=== PATIENT | female | born 1975 | race Caucasian/White ===

== ENCOUNTER 2019-12-26 09:28 | Outpatient (REF) | payer BC, SELFPAY ==
[2019-12-26 11:19] LABS: MANUAL DIFF FLAG NO
[2019-12-26 11:50] LABS: Basophils Percent Auto 0.7 % (0-2); Eosinophils Absolute Auto 0.1 X10*3/uL (0.0-0.4); Eosinophils Percent Auto 2.3 % (0-4); Hematocrit 41.5 % (37-47); Hemoglobin 13.4 g/dl (12.0-16.0); Imm Gran Abs Auto 0.01 X10*3/uL (0.00-0.03); Imm Gran Pct Auto 0.2 % (0.0-0.4); Lymphocytes Absolute Auto 1.6 X10*3/uL (1.2-4.9); Lymphocytes Percent Auto 28.7 % (20-40); Mean Corpuscular HGB Conc 32.3 g/dl (31.0-35.0); Mean Corpuscular Hemoglobin 27.9 pg (27.0-33.0); Mean Corpuscular Volume 86.3 fL (80-98); Monocytes Absolute Auto 0.5 X10*3/uL (0.1-1.2); Monocytes Percent Auto 9.1 % (2-11); Neutrophils Absolute Auto 3.3 X10*3/uL (2.0-8.3); Platelet Count 292 X10*3/uL (160-400); Red Blood Count 4.81 X10*6/uL (4.20-5.50); Red Cell Distribution Width 12.4 % (11.0-16.0); White Blood Count 5.6 X10*3/uL (4.8-10.8)
[2019-12-26 12:24] LABS: Alanine Aminotransferase 57 U/L (0-31); Anion Gap 14 (12-20); Aspartate Amino Transferase 38 U/L (5-31); Blood Urea Nitrogen 10 mg/dL (9-16); Calcium 9.4 mg/dL (8.4-10.2); Carbon Dioxide 29 mmol/L (22-29); Chloride 103 mmol/L (96-108); Cholesterol 275 mg/dL; Estimated Glomerular Filt Rate > 60; Glucose Fasting 92 mg/dL (60-99); HDL Cholesterol 58 mg/dL; LDL Cholesterol Calculated 174 mg/dl; Potassium 4.8 mmol/l (3.3-5.1); Sodium 141 mmol/L (135-145); Triglycerides 216 mg/dL
[2019-12-26 12:32] LABS: TSH reflex Free T4 1.41 mIU/mL (0.32-4.0); Vitamin D 25-OH Total 19.5 ng/mL (>30)
== END 2019-12-26 09:29 | disposition home or self-care (01) ==
LOC: HO.HMGCX 09:28
PROVIDERS: Nurse Practitioner Family; PCP Internal Medicine; Visit Provider Internal Medicine
DX: Z20.828 Contact with and (suspected) exposure to other viral communicable diseases (principal); F41.8 Other specified anxiety disorders; E55.9 Vitamin D deficiency, unspecified; Z00.01 Encounter for general adult medical examination with abnormal findings; I10 Essential (primary) hypertension
CPT/HCPCS: 36415; 80048; 80061; 82306; 84443; 84450; 84460; 85025; U0003

== ENCOUNTER 2020-05-29 08:20 | Outpatient (REF) | payer BC, SELFPAY ==
[2020-05-29 11:16] LABS: MANUAL DIFF FLAG NO
[2020-05-29 11:35] LABS: Basophils Absolute Auto 0.1 X10*3/uL (0.0-0.2); Basophils Percent Auto 1.3 % (0-2); Eosinophils Absolute Auto 0.1 X10*3/uL (0.0-0.4); Eosinophils Percent Auto 2.3 % (0-4); Hemoglobin 12.4 g/dl (12.0-16.0); Imm Gran Abs Auto 0.01 X10*3/uL (0.00-0.03); Imm Gran Pct Auto 0.2 % (0.0-0.4); Lymphocytes Absolute Auto 1.4 X10*3/uL (1.2-4.9); Lymphocytes Percent Auto 29.7 % (20-40); Mean Corpuscular HGB Conc 31.8 g/dl (31.0-35.0); Mean Corpuscular Hemoglobin 27.5 pg (27.0-33.0); Mean Corpuscular Volume 86.5 fL (80-98); Mean Platelet Volume 10.7 fL (9.4-12.3); Monocytes Absolute Auto 0.5 X10*3/uL (0.1-1.2); Monocytes Percent Auto 9.4 % (2-11); Neutrophils Absolute Auto 2.7 X10*3/uL (2.0-8.3); Neutrophils Percent Auto 57.1 % (45-73); Platelet Count 305 X10*3/uL (160-400); Red Blood Count 4.51 X10*6/uL (4.20-5.50); Red Cell Distribution Width 12.9 % (11.0-16.0); White Blood Count 4.8 X10*3/uL (4.8-10.8)
[2020-05-29 11:46] LABS: Alanine Aminotransferase 43 U/L (0-31); Albumin Level 4.4 g/dL (3.5-5.0); Alkaline Phosphatase 66 U/L (39-117); Anion Gap 12 (12-20); Aspartate Amino Transferase 31 U/L (5-31); Bilirubin Total 0.6 mg/dL (0.0-1.0); Blood Urea Nitrogen 12 mg/dL (9-16); Calcium 8.9 mg/dL (8.4-10.2); Carbon Dioxide 26 mmol/L (22-29); Chloride 104 mmol/L (96-108); Cholesterol 228 mg/dL; Estimated Glomerular Filt Rate > 60; Glucose Fasting 97 mg/dL (60-99); HDL Cholesterol 55 mg/dL; LDL Cholesterol Calculated 152 mg/dl; Potassium 4.2 mmol/L (3.3-5.1); Sodium 138 mmol/L (135-145); Total Protein 6.9 g/dL (6.5-8.0); Triglycerides 109 mg/dL
[2020-05-29 11:57] LABS: TSH reflex Free T4 1.72 uIU/mL (0.32-4.0); Vitamin D 25-OH Total 34.1 ng/mL (>30)
[2020-05-29 12:13] LABS: Folate 15.2 ng/mL (> or = 4.0); Vitamin B12 428 pg/mL (200-900)
== END 2020-05-29 08:21 | disposition home or self-care (01) ==
LOC: HO.HMGCLDS 08:20
PROVIDERS: PCP Internal Medicine; Visit Provider Internal Medicine
DX: E55.9 Vitamin D deficiency, unspecified (principal); F41.8 Other specified anxiety disorders; R20.2 Paresthesia of skin; E78.5 Hyperlipidemia, unspecified; F32.81 Premenstrual dysphoric disorder
CPT/HCPCS: 36415; 80053; 80061; 82306; 82607; 82746; 84443; 85025

== ENCOUNTER 2020-12-27 09:42 | Outpatient (REF) | payer BC, SELFPAY ==
[2020-12-27 11:53] LABS: Alanine Aminotransferase 62 U/L (0-31); Anion Gap 9 (12-20); Aspartate Amino Transferase 41 U/L (5-31); Blood Urea Nitrogen 13 mg/dL (9-16); Carbon Dioxide 28 mmol/L (22-29); Chloride 103 mmol/L (96-108); Cholesterol 213 mg/dL; Estimated Glomerular Filt Rate > 60; Glucose Fasting 95 mg/dL (60-99); HDL Cholesterol 55 mg/dL; LDL Cholesterol Calculated 135 mg/dl; Potassium 4.1 mmol/L (3.3-5.1); Sodium 136 mmol/L (135-145); Triglycerides 118 mg/dL
[2020-12-27 12:44] LABS: Folate 12.9 ng/mL (> or = 4.0); Vitamin B12 361 pg/mL (200-900)
== END 2020-12-27 09:43 | disposition home or self-care (01) ==
LOC: HO.HMGCLDS 09:42
PROVIDERS: PCP Internal Medicine; Visit Provider Internal Medicine
DX: R20.2 Paresthesia of skin (principal); E78.5 Hyperlipidemia, unspecified; I10 Essential (primary) hypertension
CPT/HCPCS: 36415; 80048; 80061; 82607; 82746; 84443; 84450; 84460

== ENCOUNTER 2021-02-05 13:56 | Outpatient (REF) | payer BC, SELFPAY ==
--- NOTE | ~2021-02-05 | MM_ITS ---
EXAMINATION: MM SCREENING DIGITAL BREAST TOMOSYNTHESIS, BILATERAL CLINICAL INFORMATION: Screening. Asymptomatic. The lifetime risk of breast cancer based on the Tyrer-Cuzick Model is 14%. COMPARISON: Outside mammography: 02/27/2017, 10/03/2016 ([facility]). TECHNIQUE: Digital breast tomosynthesis is performed in both the craniocaudal and mediolateral oblique views along with computer-aided detection (CAD). Synthesized 2D images are generated from the tomosynthesis. FINDINGS: There are scattered areas of fibroglandular density (ACR BI-RADS breast composition Category b). Parenchymal pattern is similar to prior outside exams. There is no interval mass or architectural abnormality. Again, there are scattered bilateral punctate calcifications in each breast of similar number and distribution. The axilla and skin contours are unremarkable. No significant changes. MM/MM tomosynthesis screening BI IMPRESSION: No mammographic evidence of malignancy. ASSESSMENT: BI-RADS 2: Benign RECOMMENDATION: Routine annual mammography screening. This patient's information was entered into a reminder system with a target due date for their next mammogram.
== END 2021-02-05 13:57 | disposition home or self-care (01) ==
LOC: HO.MAMMO 13:56
PROVIDERS: Visit Provider Internal Medicine
DX: Z12.31 Encounter for screening mammogram for malignant neoplasm of breast (principal)
CPT/HCPCS: 77063; 77067

== ENCOUNTER 2021-12-26 08:52 | Outpatient (REF) | payer BC, SELFPAY ==
[2021-12-26 12:08] LABS: Alanine Aminotransferase 75 U/L (0-31); Anion Gap 13 (12-20); Aspartate Amino Transferase 49 U/L (5-31); Blood Urea Nitrogen 11 mg/dL (9-16); Calcium 9.6 mg/dL (8.4-10.2); Carbon Dioxide 27 mmol/L (22-29); Chloride 103 mmol/L (96-108); Cholesterol 232 mg/dL; Estimated Glomerular Filt Rate > 60; Glucose Fasting 97 mg/dL (60-99); HDL Cholesterol 53 mg/dL; LDL Cholesterol Calculated 158 mg/dl; Potassium 4.3 mmol/L (3.3-5.1); Sodium 139 mmol/L (135-145); TSH reflex Free T4 2.11 uIU/mL (0.32-4.0); Triglycerides 109 mg/dL; Vitamin D 25-OH Total 36.6 ng/mL (>30)
== END 2021-12-26 08:53 | disposition home or self-care (01) ==
LOC: HO.HMGCLDS 08:52
PROVIDERS: PCP Internal Medicine; Visit Provider Internal Medicine
DX: Z00.01 Encounter for general adult medical examination with abnormal findings (principal); E78.5 Hyperlipidemia, unspecified; E66.9 Obesity, unspecified; E55.9 Vitamin D deficiency, unspecified; N95.1 Menopausal and female climacteric states
CPT/HCPCS: 36415; 80048; 80061; 82306; 84443; 84450; 84460

== ENCOUNTER 2022-02-07 15:26 | Outpatient (REF) | payer BC, SELFPAY ==
--- NOTE | ~2022-02-07 | MM_ITS ---
EXAMINATION: MM SCREENING DIGITAL BREAST TOMOSYNTHESIS, BILATERAL CLINICAL INFORMATION: Screening. Asymptomatic. The lifetime risk of breast cancer based on the Tyrer-Cuzick Model is 13.6%. COMPARISON: Mammography: February 05, 2021 and studies dating back to October 03, 2016 TECHNIQUE: Digital breast tomosynthesis is performed in both the craniocaudal and mediolateral oblique views along with computer-aided detection (CAD). Synthesized 2D images are generated from the tomosynthesis. FINDINGS: The breasts are heterogeneously dense, which may obscure small masses (ACR BI-RADS breast composition Category c). There are no significant masses, abnormal calcifications, or other abnormalities. MM/MM tomosynthesis screening BI IMPRESSION: No significant changes from prior exam. ASSESSMENT: BI-RADS 1: Negative RECOMMENDATION: Routine annual mammography screening. This patient's information was entered into a reminder system with a target due date for their next mammogram.
== END 2022-02-07 15:27 | disposition home or self-care (01) ==
LOC: HO.MAMMO 15:26
PROVIDERS: PCP Internal Medicine; Visit Provider Internal Medicine
DX: Z12.31 Encounter for screening mammogram for malignant neoplasm of breast (principal)
CPT/HCPCS: 77063; 77067

== ENCOUNTER 2022-07-29 07:24 | Outpatient (REF) | payer BC, SELFPAY ==
[2022-07-29 11:47] LABS: Alanine Aminotransferase 64 U/L (0-31); Albumin Level 4.3 g/dL (3.5-5.0); Alkaline Phosphatase 81 U/L (39-117); Aspartate Amino Transferase 42 U/L (5-31); Bilirubin Direct 0.1 mg/dL (0.0-0.5); Bilirubin Total 0.6 mg/dL (0.0-1.0); Cholesterol 231 mg/dL; HDL Cholesterol 55 mg/dL; LDL Cholesterol Calculated 156 mg/dl; Total Protein 7.1 g/dL (6.5-8.0); Triglycerides 103 mg/dL
[2022-07-30 07:33] LABS: HBS Num1 0.52 mIU/mL (0-7.99); HBc Num1 0.06 S/CO (0.00-0.79); HBsAGNum1 0.23 S/CO (0.00-0.99); Hepatitis B Core Antibody Nonreactive (Nonreactive); Hepatitis B Surface Antigen Negative (Negative); ~HepC Num1 0.08 S/CO (0.00-0.79); ~Hepatitis B Surface Antibody NONREACTIVE (Nonreactive); ~Hepatitis C Antibody Nonreactive (Nonreactive)
== END 2022-07-29 07:25 | disposition home or self-care (01) ==
LOC: HO.HMGCLDS 07:24
PROVIDERS: PCP Internal Medicine; Visit Provider Internal Medicine
DX: E78.5 Hyperlipidemia, unspecified (principal); R74.01 Elevation of levels of liver transaminase levels
CPT/HCPCS: 36415; 80061; 80076; 86704; 86706; 86803; 87340

== ENCOUNTER 2022-09-25 15:33 | Outpatient (AMB) | payer BC, SELFPAY ==
--- NOTE | 2022-09-25 15:40 | MHC.PC.OV ---
Vital Signs 09/25/22 15:43 Height 5 ft 4 in Weight 195 lb BMI 33.5 BP 110/70 Blood Pressure Location Lt brachial Position Sitting Pulse 69 Pulse Source Pulse Oximeter Pulse Oximetry (%) 97 Oxygen Delivery Method Room Air Intake Visit Reasons: f/u 6 months labs Intake Note: Pt is here today for her 6 months f/u labs, Pt didn't get labs done: pt c/o night sweats Allergies No Known Allergies Allergy (Verified 09/25/22 16:09) Medication List - Last Reconciled 09/25/22 by Carol Sandoval MD fluoxetine 20 mg PO DAILY Tobacco use date assessed: 09/25/22 Dental Screening Dental Screen Date: 09/25/22 HPI f/u 6 months labs HPI Details 47-year-old lady with dyslipidemia, premenstrual dysphoric disorder, obesity, here today for follow-up. She has not yet had her labs done prior to this visit, has been complaining of recurrent night sweats over the last several weeks. Has not had her period for at least a year. Complains of difficulty with initiating and maintaining sleep, frequently wakes up unable to go back, wakes up tired all the time, and has been told the by her boyfriend that she snores a lot. She has taken hydroxyzine before, only took half a tablet , which helped her go to sleep but made her very drowsy when she woke up the next morning. She also has been trying to lose weight. She has changed her diet, has been avoiding a lot of carbs, avoiding frequent snacking, and has been exercising more this past few months. Continues to gain weight however and is getting very frustrated . [facility] Medical History (Updated 09/25/22 @ 16:15 by Carol Sandoval MD) Depression with anxiety Dyslipidemia Elevated liver transaminase level Excessive daytime sleepiness External hemorrhoids Gestational diabetes History of COVID-19 Loud snoring Obesity (BMI 30.0-34.9) Paresthesia of both feet Fanny-menopause PMDD (premenstrual dysphoric disorder) Right upper lobe pneumonia Sleeping difficulty Vitamin D deficiency Vitiligo Surgical History No pertinent past surgical history Family History Father Medical history non-contributory Mother Medical history non-contributory Thyroid disorder Son No problems noted. Daughter No problems noted. Social History Housing: House Alcohol intake: current Patient Tobacco Use Status: Never used Tobacco e-Cigarette/Vaping Use: Never Used service: No Current occupational status: employed Cognitive needs: No Hearing needs: No Vision needs: Yes Questionnaire PHQ-9 Over the last 2 weeks, how often have you been bothered by any of the following problems? 1. Little interest or pleasure in doing things: several days 2. Feeling down, depressed, or hopeless: several days 3. Trouble falling or staying asleep, or sleeping too much: several days 4. Feeling tired or having little energy: several days 5. Poor appetite or overeating: several days 6. Feeling bad about yourself - or that you are a failure or have let yourself or your family down: not at all 7. Trouble concentrating on things, such as reading the newspaper or watching television: not at all 8. Moving or speaking so slowly that other people could have noticed. Or the opposite - being so fidgety or restless that you have been moving around a lot more than usual: not at all 9. Thoughts that you would be better off or of hurting yourself in some way: not at all Total score: 5 Depression Screening Interpretation: Negative Source: Developed by Drs. Adi Balderrama, Rima Yu, Ryan Marie and colleagues, with an educational roberta from [employer]. Thrive Questionnaire Date Thrive assessed: 09/25/22 I am a: Patient What is your living situation today?: I have a steady place to live Within the past 12 months, did the food you bought not last and you didn't have the money to get more?: Never true Within the past 12 months, did you worry whether your food would run out before you got money to buy more?: Never true Do you have trouble paying for medicines?: No Do you have trouble getting transportation to medical appointments?: No Do you have trouble paying your heating and electricity bill?: No Do you have trouble taking care of your child, family member or friend?: No Do you have trouble with day-to-day activities such as bathing, preparing meals, shopping, managing finances, etc.?: No Are you currently unemployed and looking for a job?: No Are you interested in more education?: No AUDIT C Alcohol Use Questionnaire (AUDIT-C) 1. How often do you have a drink containing alcohol?: 2-4 times a month 2. How many drinks containing alcohol do you have on a typical day when you are drinking?: 1 or 2 3. How often do you have six or more drinks on one occasion?: Never Total Score: 2 TAMRA-7 AMB Questionnaire TAMRA-7 Date TAMRA - 7 assessed: 12/26/21 Feeling nervous, anxious, or on edge: 2 = More than half the days Not being able to stop or control worryin = Several days Worrying too much about different things: 2 = More than half the days Trouble relaxin = Several days Being so restless that it is hard to sit still: 1 = Several days Becoming easily annoyed or irritable: 1 = Several days Feeling afraid as if something awful might happen: 1 = Several days Total TAMRA-7 score (0-4 normal; 5-9 mild; 10-14 moderate; 15-21 severe): 9 Source: Developed by Drs. Adi Balderrama, Rima Yu, Ryan Marie and colleagues, with an educational roberta from [employer]. TAMRA-7 Assessment Billing TAMRA-7 Assessment Tool: TAMRA-7 Assessment 59949 [place] Sleepiness Scale Questions Sitting and reading: slight chance of dozing Watching TV: moderate chance of dozing Sitting inactive in a theater, movie etc.: would never doze As a passenger in a car for an hour without break: moderate chance of dozing Lying down in the afternoon when circumstances permit: high chance of dozing Sitting and talking to someone: would never doze Sitting quietly after lunch without alcohol: would never doze In a car, while stopped for a few minutes in the traffic: would never doze ESS < 10: normal, ESS > 12: pathologic: 8 Review of Systems Const Denies body aches, Denies fatigue, Denies fever(s) and Denies poor appetite Eyes Reports blurry vision (wears corrective lenses when driving) ENT Denies hoarseness, Denies nasal congestion, Denies disequilibrium, Denies sinus pain, Denies sinus pressure and Denies sore throat Card Denies chest pain, Denies lightheadedness, Denies palpitations and Denies dyspnea Resp Denies chest congestion, Denies cough, Denies dyspnea and Denies wheezing GI Denies abdominal pain, Denies change in bowel habits and Denies heartburn Denies hematuria, Reports hot flashes (Mild occasionally at night), Denies dysuria, Denies urinary urgency and Denies vaginal discharge Musc Denies myalgias, Denies arthralgias and Denies stiffness Skin/Breast Denies lesions and Denies rash Neuro Denies disequilibrium Psych Reports abnormal sleep pattern, Denies difficulty concentrating and Denies irritability Endo Denies fatigue, Denies polydipsia, Denies polyuria and Denies palpitations Anatoliy/Lymph Reports no additional complaints Aller/Immun Denies seasonal rhinorrhea and Denies wheezing Physical exam (Primary Care) Vital Signs: Last Vital Signs Pulse 69 09/25/22 15:43 BP 110/70 09/25/22 15:43 Pulse Ox 97 09/25/22 15:43 Oxygen Delivery Method Room Air 09/25/22 15:43 BMI result Body Mass Index 33.5 BMI Assessment/Plan discussion: High BMI High, discussed plan: lifestyle, weight reduction, dietary and physical activity Tobacco/Smoking Status: Tobacco use Status Tobacco use date assessed 09/25/22 09/25/22 15:43 Patient Tobacco Use Status Never used Tobacco 09/25/22 15:43 e-Cigarette/Vaping Use Never Used 09/25/22 15:43 PHQ-9: PHQ-9 Score PHQ-9: Total score 5 09/25/22 16:27 Depression Screening Interpretation: Negative Thrive Assessment: Date of Thrive Assessment Date Thrive assessed 09/25/22 09/25/22 15:51 Const General: cooperative, comfortable and no acute distress Orientation/consciousness: patient oriented x3 Limitations: no limitations HENMT Ears: hearing grossly normal bilaterally, external ears normal, TM's normal bilaterally and EAC's normal General nose exam: Normal external nose present, Normal nasal mucous membranes and turbinates present and No nasal discharge present Mouth: oropharynx normal and moist mucous membranes Eyes General: appearance normal, both eyes and all related structures Conjunctivae: conjunctivae normal Pupils: Equal, round and reactive pupils present EOM: EOMs intact bilaterally Neck Neck: Yes full ROM, Yes no lymphadenopathy and Yes supple Thyroid: Thyroid normal Chest Chest palpation & inspection: normal inspection of the chest Breast/axilla palpation: normal palpation of the breasts Resp Effort & Inspection: normal respiratory effort and able to speak in complete sentences Auscultation: clear to auscultation bilaterally Cardio Rate: regular rate Rhythm: regular rhythm Heart sounds: S1 normal heart sound present and S2 normal heart sound present GI Inspection: Yes normal to inspection Palpation (GI): Soft to palpation, nontender and no masses Auscultation: normal bowel sounds General: Yes deferred (Goes to [facility] for her Pap and pelvic exam) Back/Spine/Pelvis Cervical Spine: cervical ROM normal Thoracic/Lumbar Spine: thoracic and lumbar spine normal to inspection Skin General skin exam: no rashes or lesions noted Neuro General: patient oriented x3, gait normal, tone normal, moves all extremities, Normal light touch and pain sensation and no focal motor deficits Cranial nerves: Yes Equal, round and reactive pupils present Cognition (Neuro): normal cognition Gait exam (Neuro): Normal gait present Motor exam (neuro): 5/5 motor strength present throughout Extrem General: Yes full ROM, Yes no joint enlargement, Yes no pedal edema, Yes no calf tenderness and Yes normal gait Psych Appearance: grossly normal Mental Status: mental status grossly normal Speech and movement: Normal speech and movement present Affect: normal affect Attitude: cooperative Thought process: Normal thought process present Assessment and Plan Assessment & Plan (1) Excessive daytime sleepiness: Code(s): G47.19 - Other hypersomnia Plan: Referral to sleep medicine currently for further evaluation management (2) Loud snoring: Code(s): R06.83 - Snoring (3) Sleeping difficulty: Code(s): G47.9 - Sleep disorder, unspecified Plan: Will try on the a lower dose of hydroxyzine at 10 mg at bedtime (4) Obesity (BMI 30.0-34.9): Code(s): E66.9 - Obesity, unspecified Plan: Has tried diet and exercise, continues to gain weight, will try on Wegovy at 0.25 mg injected subcutaneously once a week, patient instructed on how to do injections and reminded to rotate sites of injection, discussed possible side effects of medication which may include nausea, abdominal cramping and occasional diarrhea. Call if having any symptoms, will see her back for follow-up in 4 weeks after starting medication Orders: Referrals Sleep Medicine Referral G47.19 - Other hypersomnia, G47.9 - Sleep disorder, unspecified, R06.83 - Snoring Medications: New hydroxyzine HCl 10 mg PO BEDTIME 30 tabs 2RF semaglutide (weight loss) (Wegovy) administer weeks 1 through 4 of therapy 0.25 mg (0.5 mL) subcut QWEEK 2 mL 0RF E66.9 - Obesity, unspecified Wegovy (semaglutide (weight loss)) administer weeks 1 through 4 of therapy 0.25 mg (0.5 mL) subcut QWEEK 2 mL 0RF NS E66.9 - Obesity, unspecified Coding Level of Care Code Est Pt Level 3 (61388) Diagnoses Excessive daytime sleepiness G47.19 Loud snoring R06.83 Sleeping difficulty G47.9 Obesity (BMI 30.0-34.9) E66.9 Additional Codes TAMRA-7 Assessment Billing - TAMRA-7 Assessment Tool: TAMRA-7 Assessment 89246 ([id number])
[2022-09-25 15:43] VITALS: BP 110/70; PULSE 69; O2SAT 97; BMI 33.5
== END 2022-09-25 16:30 | disposition home or self-care (01) ==
PROVIDERS: PCP Internal Medicine; Visit Provider Internal Medicine
DX: G47.19 Other hypersomnia (principal); G47.9 Sleep disorder, unspecified; E66.9 Obesity, unspecified; Z68.33 Body mass index [BMI] 33.0-33.9, adult; R06.83 Snoring
CPT/HCPCS: 99213

== ENCOUNTER 2023-02-17 15:29 | Outpatient (REF) | payer BC, SELFPAY ==
--- NOTE | ~2023-02-17 | MM_ITS ---
EXAMINATION: MM SCREENING DIGITAL BREAST TOMOSYNTHESIS, BILATERAL CLINICAL INFORMATION: Screening. Asymptomatic. COMPARISON: Mammography: 02/07/2022, 02/05/2021, 10/03/2016. Ultrasound right breast 02/27/2017. TECHNIQUE: Digital breast tomosynthesis is performed in both the craniocaudal and mediolateral oblique views along with computer-aided detection (CAD). Synthesized 2D images are generated from the tomosynthesis. FINDINGS: The breasts are heterogeneously dense, which may obscure small masses (ACR BI-RADS breast composition Category c). There are no suspicious masses, suspicious grouped calcifications, or areas of architectural distortion in either breast. There are a few benign type scattered calcifications in both breasts. No aggressive changes. The parenchymal pattern is stable from prior exams. No skin or axillary abnormalities. MM/MM tomosynthesis screening BI IMPRESSION: No mammographic evidence of malignancy. ASSESSMENT: BI-RADS BI-RADS 2 - Benign Findings RECOMMENDATION: Routine annual mammography screening. 1 year F/U This examination should not preclude the clinical evaluation of a suspicious palpable abnormality. This patient's information was entered into a reminder system with a target due date for their next mammogram.
== END 2023-02-17 15:30 | disposition home or self-care (01) ==
LOC: HO.MAMMO 15:29
PROVIDERS: PCP Internal Medicine; Visit Provider Internal Medicine
DX: Z12.31 Encounter for screening mammogram for malignant neoplasm of breast (principal)
CPT/HCPCS: 77063; 77067

== ENCOUNTER → 2023-02-17 15:30 | Outpatient (BNV) | payer BC, SELFPAY | PROVIDERS: PCP Internal Medicine; Visit Provider Radiology Diagnostic Radiology | DX: Z12.31 Encounter for screening mammogram for malignant neoplasm of breast (principal) | CPT/HCPCS: 77063; 77067 ==

== ENCOUNTER 2023-04-25 10:26 | Outpatient (REF) | payer BC, SELFPAY ==
[2023-04-25 14:18] LABS: Alanine Aminotransferase 60 U/L (0-31); Albumin Level 4.3 g/dL (3.5-5.0); Alkaline Phosphatase 92 U/L (39-117); Aspartate Amino Transferase 41 U/L (5-31); Bilirubin Direct 0.1 mg/dL (0.0-0.5); Bilirubin Total 0.4 mg/dL (0.0-1.0); Cholesterol 204 mg/dL (<200); HDL Cholesterol 47 mg/dL (>40); LDL Cholesterol Calculated 137 mg/dL (<100); Total Protein 7.2 g/dL (6.5-8.0); Triglycerides 102 mg/dL (<150)
== END 2023-04-25 10:27 | disposition home or self-care (01) ==
LOC: HO.HMGCLDS 10:26
PROVIDERS: PCP Internal Medicine; Visit Provider Internal Medicine
DX: R74.01 Elevation of levels of liver transaminase levels (principal); E66.9 Obesity, unspecified; E78.5 Hyperlipidemia, unspecified
CPT/HCPCS: 36415; 80061; 80076

== ENCOUNTER 2024-02-23 15:34 | Outpatient (REF) | payer BC, SELFPAY ==
--- NOTE | ~2024-02-23 | MM_ITS ---
EXAMINATION: MM SCREENING DIGITAL BREAST TOMOSYNTHESIS, BILATERAL CLINICAL INFORMATION: Screening. Asymptomatic. COMPARISON: Mammography: Comparison is made with available priors TECHNIQUE: Digital breast mammography with tomosynthesis is performed in both the craniocaudal and mediolateral oblique views along with computer-aided detection (CAD). FINDINGS: The breasts are heterogeneously dense, which may obscure small masses (ACR BI-RADS breast composition Category c). There are no significant masses, abnormal calcifications, or other abnormalities. MM/MM tomosynthesis screening BI IMPRESSION: No mammographic evidence of malignancy. ASSESSMENT: BI-RADS BI-RADS 1 - Negative RECOMMENDATION: Routine annual mammography screening. 1 year F/U This examination should not preclude the clinical evaluation of a suspicious palpable abnormality. This patient's information was entered into a reminder system with a target due date for their next mammogram. Electronically signed by: Laney Rangel DO 03/01/2024 07:41 AM [facility]
== END 2024-02-23 15:35 | disposition home or self-care (01) ==
LOC: HO.MAMMO 15:34
PROVIDERS: PCP Internal Medicine; Visit Provider Internal Medicine
DX: Z12.31 Encounter for screening mammogram for malignant neoplasm of breast (principal)
CPT/HCPCS: 77063; 77067

== ENCOUNTER → 2024-02-23 15:45 | Outpatient (BNV) | payer BC, SELFPAY | PROVIDERS: PCP Internal Medicine; Visit Provider Internal Medicine | DX: Z12.31 Encounter for screening mammogram for malignant neoplasm of breast (principal) | CPT/HCPCS: 77063; 77067 ==

== ENCOUNTER 2024-03-01 10:07 | Outpatient (AMB) | payer BC, SELFPAY ==
--- NOTE | 2024-03-01 10:27 | MHC.PC.OV ---
Vital Signs 03/01/24 10:50 Height 5 ft 4 in Weight 171 lb BMI 29.3 BP 134/92 H Blood Pressure Location Lt brachial Position Sitting Pulse 78 Pulse Source Pulse Oximeter Pulse Oximetry (%) 96 Oxygen Delivery Method Room Air Intake Visit Reasons: PE Intake Note: Pt is here today for her PE: Last mammogram 02.23.24, papsmear 03/07/20, cologuard 01/12/22 Allergies No Known Allergies Allergy (Verified 03/01/24 11:18) Medication List - Last Reconciled 03/01/24 by Carol Sandoval MD fluoxetine 20 mg PO DAILY [semaglutide IM .q10 days] Tobacco use date assessed: 03/01/24 Dental Screening Dental Screen Date: 03/01/24 Did you have a dental visit in the last 12 months?: Yes Did you have a dental problem in the last 6 months where you did not have access to dental care?: No Was dental information given to patient?: Patient has dentist HPI PE HPI Details - The patient is a 48-year-old female presenting today for physical exam. [facility], and is currently on semaglutideWhich she started using last May 2023 , achieving a 25-pound loss. She reports occasional abdominal discomfort and increased nervousness post-injection, which results spontaneously- She reports having occasional anxiety attacks , exacerbated by marital issues and caregiving responsibilities for a mother with dementia. Anxiety management includes ongoing therapy sessions and Prozac 100 mg daily. and patient are currently participating in therapy. Purchased nearby mobile home for mother with dementia; provides care with assistance from a ATHLETIC DIRECTOR - Menopause began post-COVID booster in 2020. Declines vaccinations like shingles, based on anecdotal side effects. -up-to-date with her screening mammogram done 02/23/2024 with benign findings, and had a Pap smear 03/07/2020 with normal 4. - Previous Cologuard test in 2021, with next due in 2024 as per the triennial schedule. - Declined shingles and Tdap vaccines, flu shots and COVID boosters. - Efforts towards weight management include semaglutide usage, lifestyle changes [facility] Medical History (Updated 03/01/24 @ 11:32 by Carol Sandoval MD) Generalized anxiety disorder Loud snoring Excessive daytime sleepiness Sleeping difficulty Elevated liver transaminase level History of COVID-19 Fanny-menopause Obesity (BMI 30.0-34.9) Vitiligo Dyslipidemia Paresthesia of both feet Depression with anxiety Right upper lobe pneumonia External hemorrhoids Vitamin D deficiency Gestational diabetes Surgical History No pertinent past surgical history Family History Father Medical history non-contributory Mother Medical history non-contributory Thyroid disorder Son No problems noted. Daughter No problems noted. Social History Housing: House Alcohol intake: current Patient Tobacco Use Status: Never used Tobacco e-Cigarette/Vaping Use: Never Used service: No Current occupational status: employed Cognitive needs: No Hearing needs: No Vision needs: Yes Questionnaire PHQ-9 Over the last 2 weeks, how often have you been bothered by any of the following problems? 1. Little interest or pleasure in doing things: not at all 2. Feeling down, depressed, or hopeless: several days 3. Trouble falling or staying asleep, or sleeping too much: not at all 4. Feeling tired or having little energy: several days 5. Poor appetite or overeating: not at all 6. Feeling bad about yourself - or that you are a failure or have let yourself or your family down: not at all 7. Trouble concentrating on things, such as reading the newspaper or watching television: not at all 8. Moving or speaking so slowly that other people could have noticed. Or the opposite - being so fidgety or restless that you have been moving around a lot more than usual: not at all 9. Thoughts that you would be better off or of hurting yourself in some way: not at all Total score: 2 Depression Screening Interpretation: Negative Depression Screening Done: Yes 70789 - PHQ-9 Billing: Yes Source: Developed by Drs. Adi Balderrama, Rima Yu, Ryan Marie and colleagues, with an educational roberta from [employer]. Thrive Questionnaire Date Thrive assessed: 03/01/24 I am a: Patient What is your living situation today?: I have a steady place to live Within the past 12 months, did the food you bought not last and you didn't have the money to get more?: Never true Within the past 12 months, did you worry whether your food would run out before you got money to buy more?: Never true Do you have trouble paying for medicines?: No Do you have trouble getting transportation to medical appointments?: No Do you have trouble paying your heating and electricity bill?: No Do you have trouble taking care of your child, family member or friend?: No Do you have trouble with day-to-day activities such as bathing, preparing meals, shopping, managing finances, etc.?: No Are you currently unemployed and looking for a job?: No Are you interested in more education?: No Please select the resources that you would like help with: None Currently or been in a relationship where the following occur: No concerns reported THRIVE Score: 0 AUDIT C Alcohol Use Questionnaire (AUDIT-C) 1. How often do you have a drink containing alcohol?: Never Total Score: 0 TAMRA-7 AMB Questionnaire TAMRA-7 Date TAMRA - 7 assessed: 03/01/24 Feeling nervous, anxious, or on edge: 1 = Several days Not being able to stop or control worryin = Several days Worrying too much about different things: 1 = Several days Trouble relaxin = Several days Being so restless that it is hard to sit still: 0 = Not at all Becoming easily annoyed or irritable: 0 = Not at all Feeling afraid as if something awful might happen: 0 = Not at all Total TAMRA-7 score (0-4 normal; 5-9 mild; 10-14 moderate; 15-21 severe): 4 Source: Developed by Drs. Adi Balderrama, Rima Yu, Ryan Marie and colleagues, with an educational roberta from [employer]. Physical exam (Primary Care) Vital Signs: Last Vital Signs Pulse 78 03/01/24 10:50 BP 134/92 H 03/01/24 10:50 Pulse Ox 96 03/01/24 10:50 Oxygen Delivery Method Room Air 03/01/24 10:50 BMI result Body Mass Index 29.3 Tobacco/Smoking Status: Tobacco use Status Tobacco use date assessed 03/01/24 03/01/24 10:29 Patient Tobacco Use Status Never used Tobacco 03/01/24 10:27 e-Cigarette/Vaping Use Never Used 03/01/24 10:27 PHQ-9: PHQ-9 Score PHQ-9: Total score 2 03/01/24 11:39 Depression Screening Interpretation: Negative Thrive Assessment: Date of Thrive Assessment Date Thrive assessed 03/01/24 03/01/24 10:29 Currently or been in a relationship where the following occur: No concerns reported Coding Level of Care Code Est Pt Prev Care 40-64y(61074) Diagnoses Annual visit for general adult medical examination with abnormal findings Z00.01 Dyslipidemia E78.5 Elevated liver transaminase level R74.01 Generalized anxiety disorder F41.1 History of gestational diabetes mellitus (GDM) Z86.32 Additional Codes PHQ-9 - 97216 - PHQ-9 Billing: Yes ([id number]) Assessment & Plan Assessment & Plan (1) Annual visit for general adult medical examination with abnormal findings: Code(s): Z00.01 - Encounter for general adult medical examination with abnormal findings (2) Dyslipidemia: Code(s): E78.5 - Hyperlipidemia, unspecified Category: Medical (3) Elevated liver transaminase level: Code(s): R74.01 - Elevation of levels of liver transaminase levels Category: Medical (4) Generalized anxiety disorder: Code(s): F41.1 - Generalized anxiety disorder Category: Medical (5) History of gestational diabetes mellitus (GDM): Code(s): Z86.32 - Personal history of gestational diabetes Plan We discussed the multifactorial approach needed for managing the patient's conditions, emphasizing the importance of sustained therapy and Prozac for mental health stabilization. The side effects of semaglutide were acknowledged, considering dose adjustments. Liver health was reviewed with repeat testing planned, tying into broader weight reduction goals through habitual lifestyle and dietary modifications. Screening commitments like the Cologuard test were confirmed on the timeline, and mammogram results were satisfactory. We addressed the issue of re-evaluating vaccines in future, depending on comfort and readiness. The patient?s potential dizziness could be related to vitamin imbalances or sleep disturbances, warranting further blood evaluations. Was seen hyperventilation - Continue Prozac 100 mg daily and therapy sessions for anxiety management. - Consider adjusting semaglutide to see if reducing frequency helps with side effects, goes to [facility] - Maintain healthy diet and regular physical activity to support liver and weight management. - Schedule next Cologuard screening for 2024 and contact OB-PROTECTION ANALYST for routine check-up. - Monitor symptoms like dizziness and report significant changes. - Discuss vaccination options and updates at upcoming visits based on personal comfort. - Continue family counseling to mitigate stress and foster family support. Orders: Orders Hemoglobin A1c 03/01/24 E78.5 - Hyperlipidemia, unspecified, F41.1 - Generalized anxiety disorder, R74.01 - Elevation of levels of liver transaminase levels, Z00.01 - Encounter for general adult medical examination with abnormal findings, Z86.32 - Personal history of gestational diabetes Comprehensive [place]. Panel Fast 03/01/24 E78.5 - Hyperlipidemia, unspecified, F41.1 - Generalized anxiety disorder, R74.01 - Elevation of levels of liver transaminase levels, Z00.01 - Encounter for general adult medical examination with abnormal findings, Z86.32 - Personal history of gestational diabetes Vitamin D 25-OH Total 03/01/24 E78.5 - Hyperlipidemia, unspecified, F41.1 - Generalized anxiety disorder, R74.01 - Elevation of levels of liver transaminase levels, Z00.01 - Encounter for general adult medical examination with abnormal findings, Z86.32 - Personal history of gestational diabetes Complete Blood Count Auto Diff 03/01/24 E78.5 - Hyperlipidemia, unspecified, F41.1 - Generalized anxiety disorder, R74.01 - Elevation of levels of liver transaminase levels, Z00.01 - Encounter for general adult medical examination with abnormal findings, Z86.32 - Personal history of gestational diabetes Referrals Cologuard Test Z12.11 - Encounter for screening for malignant neoplasm of colon, Z12.12 - Encounter for screening for malignant neoplasm of rectum Medications: Refilled fluoxetine 20 mg PO DAILY 90 caps 3RF F32.81 - Premenstrual dysphoric disorder, F41.8 - Other specified anxiety disorders
[2024-03-01 10:50] VITALS: BP 134/92; PULSE 78; O2SAT 96; BMI 29.3
== END 2024-03-01 11:43 | disposition home or self-care (01) ==
PROVIDERS: PCP Internal Medicine; Visit Provider Internal Medicine
DX: Z00.01 Encounter for general adult medical examination with abnormal findings (principal); E78.5 Hyperlipidemia, unspecified; R74.01 Elevation of levels of liver transaminase levels; F41.1 Generalized anxiety disorder; Z86.32 Personal history of gestational diabetes

== ENCOUNTER → 2024-03-01 10:07 | Outpatient (BNVA) | payer BC, SELFPAY | PROVIDERS: PCP Internal Medicine; Visit Provider Internal Medicine | DX: Z00.01 Encounter for general adult medical examination with abnormal findings (principal); E78.5 Hyperlipidemia, unspecified; R74.01 Elevation of levels of liver transaminase levels; F41.1 Generalized anxiety disorder; Z86.32 Personal history of gestational diabetes; Z79.899 Other long term (current) drug therapy | CPT/HCPCS: 96127 ==

== ENCOUNTER 2024-04-02 09:53 | Outpatient (AMB) | payer BC, SELFPAY ==
[2024-04-02 10:29] VITALS: BP 110/70; PULSE 86; TEMP 36.8; O2SAT 99; BMI 28.7
--- NOTE | 2024-04-02 10:29 | MHC.OFFWIV ---
Intake Vital Signs 04/02/24 10:29 Height 5 ft 4 in Weight 167 lb BMI 28.7 BP 110/70 Blood Pressure Location Rt brachial Position Sitting Pulse 86 Pulse Source Pulse Oximeter Temp 98.2 F Temp Source Oral Pulse Oximetry (%) 99 Oxygen Delivery Method Room Air Intake Visit Reasons: EP Fly symptoms Intake Note: Pt is here today c/o coughing, nausea x4days Patient Tobacco Use Status: Never used Tobacco Allergies No Known Allergies Allergy (Verified 04/02/24 10:38) HPI EP Fly symptoms HPI Details Patient has had worsening cough and nausea x4 days PFSH Medical History (Updated 04/02/24 @ 11:17 by Wilmer Whitaker MD) Generalized anxiety disorder Loud snoring Excessive daytime sleepiness Sleeping difficulty Elevated liver transaminase level History of COVID-19 Fanny-menopause Obesity (BMI 30.0-34.9) Vitiligo Dyslipidemia Paresthesia of both feet Depression with anxiety Right upper lobe pneumonia External hemorrhoids Vitamin D deficiency Gestational diabetes Surgical History No pertinent past surgical history Family History Father Medical history non-contributory Mother Medical history non-contributory Thyroid disorder Son No problems noted. Daughter No problems noted. Social History Housing: House Alcohol intake: current Patient Tobacco Use Status: Never used Tobacco e-Cigarette/Vaping Use: Never Used service: No Current occupational status: employed Cognitive needs: No Hearing needs: No Vision needs: Yes Review of Systems Const Reports chills, Reports fatigue, Reports fever(s), Reports headache(s) and Denies weakness ENT Denies dizziness and Reports headache(s) Card Denies dyspnea Resp Reports cough, Denies dyspnea, Denies wheezing and Denies other ( shortness of breath) Musc Denies numbness and Denies tingling Neuro Denies dizziness, Reports headache(s), Denies numbness, Denies tingling, Denies paresthesias and Denies weakness Psych Denies anxiety and Denies depression Endo Reports fatigue Aller/Immun Denies wheezing Physical Exam Vital Signs: Last Vital Signs Temp 98.2 F 04/02/24 10:29 Pulse 86 04/02/24 10:29 BP 110/70 04/02/24 10:29 Pulse Ox 99 04/02/24 10:29 Oxygen Delivery Method Room Air 04/02/24 10:29 BMI result Body Mass Index 28.7 Const Other: Appears mildly ill Resp Other: Coarse breath sounds but otherwise clear to auscultation bilaterally Assessment & Plan Assessment & Plan (1) Viral illness: Code(s): B34.9 - Viral infection, unspecified Plan: Viral illness There is no antibiotic medication for viruses. They must run their course. Most average 5-7 days but 7-10 days is not uncommon and up to 14 days is still possible. A cough is often the last symptom to resolve and this can last for weeks in some cases. Rest Hydrate well - Drink plenty of fluids. Especially water. Tylenol or ibuprofen for muscle aches, headache, fever/discomfort Can use [id number] medications for cough such as Delsym or DayQuil. Prescription cough medicines have been shown to be no better. Can not rule out COVID/flu/RSV. Swab will be sent to the lab for testing Will give patient a note to be out of work for the following week. She may return a week from Thursday Orders: Orders SARS-CoV2/FLU/RSV Today B34.9 - Viral infection, unspecified, Z20.822 - Contact with and (suspected) exposure to COVID-19 Coding Level of Care Code Est Pt Level 3 (51115) Diagnoses Viral illness B34.9
== END 2024-04-02 11:41 | disposition home or self-care (01) ==
PROVIDERS: PCP Internal Medicine; Visit Provider Family Medicine
DX: B34.9 Viral infection, unspecified (principal)

== ENCOUNTER 2024-04-02 09:53 | Outpatient (REF) | payer BC, SELFPAY ==
--- OUTSIDE RECORDS SUMMARY | 2024-04-02 13:48 | XMS_ITS | Patient Health Record ---
Author Organization [facility] Address [address] [place] [address] Care Team Providers Care Dental Surgery Doctor Name Role Phone Lori BARTH, Carol Hull Primary Care Provider Un available Ricky Cuevas Unavailable [phone] Reason For Referral No Information Medications Medication SIG (Take, Route, Fr equency, Duration) Notes Start Date End Date Status Sertraline HCl 50 MG 1 tablet Orally Onc e a day for 30 day(s) Active Social History Tobacco Use: Social History Observation Description Date Details (start date - stop date) Never Smoker NA - NA Tobacco Use/Smoking Question Answer Notes Are you a: nonsmoker Alcohol Screen Question Answer Notes Did you have a drink containing alcohol in the p ast year? No Points 0 Interpretation Negative Tobacco use other than smoking: Question Answer Notes Are you an other tobacco user? No Plan Of Treatment Pending Test Test Name Order Date X ray : Foot, right 3V 02/20/2020 Insurance Providers Payer Name Payer Address Payer Phone Subscriber Number Group Number Insured Name Patient Relationship to Insured Coverage Start Date Coverage End Date [facility] [address] [place] [address] [phone] [id number] Omid Guillen Spouse - patient is the spouse of the insured Medical (General) History Medical History History ICD Code Depression Anxiety gestational diabetes Pneumonia Vitamin D deficiency Chicken pox Surgical History Surgery Date(Month/Year)
[2024-04-02 14:32] LABS: Influenza A PCR POSITIVE (Negative); Influenza B PCR NEGATIVE (Negative); Resp Syncy Virus RNA Qual PCR NEGATIVE (Negative); SARS COV2 PCR INHOUSE NEGATIVE (Negative)
== END 2024-04-02 09:54 | disposition home or self-care (01) ==
LOC: HO.LNP 09:53
PROVIDERS: PCP Internal Medicine; Visit Provider Family Medicine
DX: R05.3 Chronic cough (principal); B34.9 Viral infection, unspecified; Z20.822 Contact with and (suspected) exposure to COVID-19
CPT/HCPCS: 0241U

== ENCOUNTER 2024-04-16 10:00 | Outpatient (REF) | payer BC, SELFPAY ==
[2024-04-16 11:46] LABS: MANUAL DIFF FLAG NO
[2024-04-16 11:54] LABS: Basophils Absolute Auto 0.1 X10*3/uL (0.0-0.2); Basophils Percent Auto 1.1 % (0-2); Eosinophils Absolute Auto 0.1 X10*3/uL (0.0-0.4); Eosinophils Percent Auto 1.8 % (0-4); Hematocrit 37.8 % (37.0-47.0); Hemoglobin 12.5 g/dl (12.0-16.0); Imm Gran Abs Auto 0.01 X10*3/uL (0.00-0.03); Imm Gran Pct Auto 0.2 % (0.0-0.4); Lymphocytes Absolute Auto 1.3 X10*3/uL (1.2-4.9); Lymphocytes Percent Auto 28.2 % (20-40); Mean Corpuscular HGB Conc 33.1 g/dl (31.0-35.0); Mean Corpuscular Hemoglobin 27.5 pg (27.0-33.0); Mean Corpuscular Volume 83.1 fL (80.0-98.0); Mean Platelet Volume 10.1 fL (9.4-12.3); Monocytes Absolute Auto 0.6 X10*3/uL (0.1-1.2); Monocytes Percent Auto 13.5 % (2-11); Neutrophils Absolute Auto 2.5 x10*3/uL (2.0-8.3); Neutrophils Percent Auto 55.2 % (45-73); Platelet Count 317 X10*3/uL (160-400); Red Blood Count 4.55 X10*6/uL (4.20-5.50); White Blood Count 4.5 X10*3/uL (4.8-10.8)
[2024-04-16 12:17] LABS: Estimated Average Glucose 108 mg/dL; Hemoglobin A1C 115.8845 umol/L; Hemoglobin A1c % 5.4 % (<6.0); Total Hemoglobin (HGBA1C) 3282.3637 umol/L
[2024-04-16 12:19] LABS: Alanine Aminotransferase 52 U/L (0-31); Anion Gap 11 (12-20); Aspartate Amino Transferase 38 U/L (5-31); Bilirubin Total 0.3 mg/dL (0.0-1.0); Blood Urea Nitrogen 10 mg/dL (9-16); Calcium 9.3 mg/dL (8.4-10.2); Carbon Dioxide 24 mmol/L (22-29); Chloride 106 mmol/L (96-108); Estimated Glomerular Filt Rate > 60; Glucose Fasting 96 mg/dL (60-99); Potassium 4.3 mmol/L (3.3-5.1); Sodium 137 mmol/L (135-145); Total Protein 7.2 g/dL (6.5-8.0)
[2024-04-16 12:28] LABS: Vitamin D 25-OH Total 27.6 ng/mL (>30)
[2024-04-16 12:41] LABS: Alkaline Phosphatase 79 U/L (39-117)
== END 2024-04-16 10:01 | disposition home or self-care (01) ==
LOC: HO.HMGCLDS 10:00
PROVIDERS: PCP Internal Medicine; Visit Provider Internal Medicine
DX: Z00.01 Encounter for general adult medical examination with abnormal findings (principal); R74.01 Elevation of levels of liver transaminase levels; E78.5 Hyperlipidemia, unspecified; F41.1 Generalized anxiety disorder; Z86.32 Personal history of gestational diabetes
CPT/HCPCS: 36415; 80053; 82306; 83036; 85025